=== PATIENT | male | born 1970 | race Caucasian/White ===

== ENCOUNTER → 2016-11-21 | Outpatient (CLI) | payer OTHER ==
--- NOTE | 2016-11-21 09:26 | US ---
EXAMINATION TYPE: US abdomen comp/pelvis limited DATE OF EXAM: 11/21/2016 7:47 AM COMPARISON: 05/18/2016 CLINICAL HISTORY: R10.9 Unspecified abdominal pain. Lower left abdominal pain, history of gallstones and kidney stones EXAM MEASUREMENTS: Liver Length: 17.0 cm Gallbladder Wall: 0.4 cm CBD: 0.4 cm Spleen: 12.8 cm Right Kidney: 10.4 x 4.5 x 5.1 cm Left Kidney: 10.3 x 6.0 x 6.0 cm Pancreas: Tail obscured by bowel gas Liver: heterogeneous Gallbladder: gallstones, GB wall upper limits of normal CBD: visualized portion appears wnl Spleen: wnl Right Kidney: no evidence of hydronephrosis or mass Left Kidney: no evidence of hydronephrosis or mass Upper IVC: wnl Abd Aorta: visualized portions appear wnl Bladder: appears wnl Bilateral Jets Seen no IMPRESSION: 1. Cholelithiasis. 2. Fatty liver.
== END ==
LOC: RADUSWWP 06:54
PROVIDERS: ATTEND Family Medicine
DX: K80.20 Calculus of gallbladder without cholecystitis without obstruction (principal); K76.0 Fatty (change of) liver, not elsewhere classified
CPT/HCPCS: 76700; 76857

== ENCOUNTER → 2017-09-18 | Outpatient (CLI) | payer OTHER ==
--- NOTE | 2017-09-18 20:56 | CONS ---
CONSULTATION This is a consultation note for sleep apnea This is a 47-year-old male patient, a primary of Dr. Livingston who is coming in for sleep apnea evaluation. The patient is feeling sleepy all the time. He is tired a lot and he is snoring very loud at nighttime. He has gained around 10-20 pounds over the past few years and he is drinking about 3-4 bottles of beer at night time. The patient also smokes. 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 His current Mascotte Score is at 17. He is under lot of stress due to work and due to the fact that his father has been diagnosed having lung cancer and his had a C-spine injury and she is having difficulty with mobility in gait and she is undergoing prolonged rehabilitation. The patient has no sleep paralysis. No hallucinations or cataplexy. He has been essentially healthy otherwise. He goes to bed around 1:00 a.m. to 2:00 a.m. and wakes up 7:00 a.m.-10:00 a.m. in the morning. He averages around 5-8 hours of sleep; however, despite that he is feeling still drowsy and sleepy during the day. He occasionally grinds his teeth. Occasionally has heartburn at nighttime. PAST MEDICAL HISTORY: Hyperuricemia, hyperlipidemia and hypertension. PAST SURGICAL HISTORY: None. ALLERGIES: Not known. OUTPATIENT MEDICATIONS: Area combination of: 1. Colchicine 0.6 mg 3 times a day. 2. Clonazepam 0.5 mg at bedtime. 3. Crestor 40 mg p.o. daily. 4. Zetia 10 mg p.o. daily. 5. Pepcid 40 mg p.o. daily. 6. Fenofibrate 54 mg p.o. daily. 7. Flonase nasal spray. 8. Indomethacin 25 mg 3 times a day. 9. Losartan 100 mg p.o. daily. 10.Omeprazole 40 mg p.o. daily. 11.Venlafaxine 75 mg ER 1 tablet a day. REVIEW OF SYSTEMS: A 12-point review of system was done and the positive findings are all mentioned above in history of present illness. Of significance, is negative for anxiety. Maybe a component of depression, as the patient is on venlafaxine. No significant restlessness in lower extremities. No anxiety or panic attacks. No palpitation. Occasional nighttime heartburn. No sleep paralysis. No hallucinations. No cataplexy. No altered mentation. No morning headaches. No cough or sputum production. No angina. No dysuria. No nocturia unless he drinks excessively at nighttime alcohol. BP is 130/74, pulse is 94, respirations 16, temperature 98.4, saturation 97% on room air. Weight is 242. Height is 5 feet 8 inches. Neck size 17-3/4 inches. GENERAL APPEARANCE: Calm, comfortable. Head is atraumatic, normocephalic. Neck is short supple. There is crowding of posterior pharynx. Mallampati class IV. No goiter or neck masses. LUNGS: Diminished breath sounds. Otherwise clear. HEART: Sounds regular rhythm. Normal S1, S2. No S3, S4. No murmurs. ABDOMEN: Soft, nontender. No organomegaly. EXTREMITIES: No edema. No cyanosis or clubbing. NEUROLOGIC: The patient is alert and oriented x3. There is no focal neurological deficits. PSYCHIATRIC: Positive for depression. Currently not active. No anxiety or panic. IMPRESSION: 1. Chronic hypersomnia with an Mascotte score of 17, rule out underlying obstructive sleep apnea. 2. Obesity with a BMI of 36. 3. Loud snoring. 4. Hyperlipidemia. 5. Hyperuricemia. 6. Gout. 7. Depression. PLAN: 1. Encourage weight loss. 2. Cut down on the alcohol drinking, especially at nighttime. 3. Implement good sleep hygiene measures. 4. Proceed with a screening polysomnogram looking for any significant obstructive sleep apnea and will treat accordingly. MMODL / IJN: [id number] /
== END | disposition home or self-care (01) ==
LOC: SLEEP 16:07
PROVIDERS: ATTEND Internal Medicine Critical Care Medicine
DX: G47.19 Other hypersomnia (principal); R06.83 Snoring; E78.5 Hyperlipidemia, unspecified; I10 Essential (primary) hypertension; F10.20 Alcohol dependence, uncomplicated; F17.200 Nicotine dependence, unspecified, uncomplicated; E66.9 Obesity, unspecified; M10.9 Gout, unspecified; F32.9 Major depressive disorder, single episode, unspecified; Z79.899 Other long term (current) drug therapy; Z68.36 Body mass index [BMI] 36.0-36.9, adult
CPT/HCPCS: 99211

== ENCOUNTER → 2018-03-12 | Outpatient (CLI) | payer OTHER ==
--- NOTE | 2018-03-12 16:10 | PN ---
PROGRESS NOTE This is a 47-year-old male patient coming in for a compliancy check regarding obstructive sleep apnea treatment. The patient was diagnosed having severe KINJAL with an AHI of 36.5, worse during REM. Based on that, the patient was given a CPAP machine. It was noted that the patient's CPAP compliance has not been great and the patient was referred to me as soon as possible for further adjustments. On today's evaluation, patient reports that he was benefitting from CPAP treatment which was set at a pressure of 12 cm of water. Never the less, he had a sinus infection and he is currently on antibiotics and at the same he has been traveling and he failed to take his BiPAP machine with him. For that reason, his compliance data looks worse and the patient is coming in for further advice. I interviewed this patient, he is benefiting from the treatment. He seems to be more committed to treatment. I checked his compliancy data and he is achieving more than 4 hours of CPAP is only 13 out of the past 30 days. His average CPAP use while being used is at 5.3 hours and his leak factor at 24 L/minute. His AHI is down to 1.9 while on treatment. He has no other specific complaints. Sinus infection seems to be resolving for now. His Cromwell score is at 12. REVIEW OF SYSTEMS: 12-point review of systems done: Positive findings are mentioned above history of present illness. PHYSICAL EXAMINATION: VITAL SIGNS: His current vitals BP is 122/66, pulse 94, respirations 16, temperature 98.9, and weight is 242, saturation 98% on room air. GENERAL APPEARANCE: Calm, comfortable. Head is atraumatic, normocephalic. NECK: Supple. Crowding of posterior pharynx with no goiter or neck mass. LUNGS: Clear to auscultation. HEART: Sounds regular rhythm. Normal S1, S2. No S3. No murmurs. ABDOMEN: Soft, nontender. No organomegaly. EXTREMITIES: No edema. No cyanosis or clubbing. IMPRESSION: 1. Severe obstructive sleep apnea with an AHI of 36.5. Suboptimal compliance data despite clinical improvement. 2. Acute sinus infections currently on amoxicillin. 3. Hypersomnia improving Cromwell score is down to 12. 4. Obesity BMI 37. 5. Hyperlipidemia. 6. Depression. 7. Gout. PLAN: 1. I will lower the CPAP pressure down to 10 cm of water. 2. Continue using AirFit N20 nose mask. 3. Demand improved compliance especially after treatment of the sinus infection. 4. We will do a short-term followup with this patient in the office in 6 weeks time. I think he will achieve adequate compliancy and this will be confirmed in next 6-8 weeks. He is benefitting from treatment and he seems to be committed and he was asked to take CPAP machine with him whenever he travels out of town. This by itself should improve his compliance data. We will continue to follow. MMODL / IJN: [id number] /
== END | disposition home or self-care (01) ==
LOC: SLEEP 13:00
PROVIDERS: ATTEND Internal Medicine Critical Care Medicine
DX: G47.33 Obstructive sleep apnea (adult) (pediatric) (principal); E66.9 Obesity, unspecified; E78.5 Hyperlipidemia, unspecified; F32.9 Major depressive disorder, single episode, unspecified; M10.9 Gout, unspecified; Z99.89 Dependence on other enabling machines and devices; Z68.37 Body mass index [BMI] 37.0-37.9, adult

== ENCOUNTER → 2018-04-23 | Outpatient (CLI) | payer OTHER ==
--- NOTE | 2018-04-23 15:31 | PN ---
PROGRESS NOTE Khoa is 48 who is coming in for a compliancy check regarding her obstructive sleep apnea treatment. The patient was diagnosed having severe KINJAL with an AHI of 36.5, and currently is on CPAP. During his last visit, his compliance was suboptimal. A lower CPAP pressure down to 10 cm of water. He is using AirFit and N20 nose mask. On today's evaluation, his compliance is improved averaging around 6.6 hours of CPAP use per night and his CPAP use for more than 4 hours . Leak factor is 18 L/minutes. His AHI is down to 3.0. He is benefitting from the treatment. His sleep quality is improved and he is waking up much more alert and refreshed during the day. Unfortunately his stepfather is dying from complications of small cell lung cancer and this has affected his sleep quality in general. Sinus infection was treated with antibiotics and he is fully recovered. REVIEW OF SYSTEMS: 12-point review of system was done. Positive findings are mentioned above history of present illness. No hypersomnia or sleepiness during the day. No restlessness in lower extremities. No sinus pain. No facial pain. No sinus pressure. No headaches. No nausea, vomiting, diarrhea. No . No flatus. PHYSICAL EXAMINATION: BP is 131/75, pulse 77, respirations 16, temperature 98.5 saturation 96% on room air. GENERAL APPEARANCE: Calm, comfortable. Head is atraumatic, normocephalic. NECK: Supple. There is no JVD. No goiter or neck masses. Mallampati class IV. LUNGS: Clear to auscultation. HEART: Sounds regular rhythm. Normal S1, S2. No S3, S4. No murmurs. ABDOMEN: Soft, nontender. No organomegaly. EXTREMITIES: No edema. No cyanosis or clubbing. IMPRESSION: 1. Severe obstructive sleep apnea AHI of 36.5. The patient has been successfully treated with a CPAP pressure of 10 cm of water. The pressure was dropped from 12 to 10. He is demonstrating improved compliancy. 2. Hypersomnia, recovered. 3. Obesity. 4. Hyperlipidemia. 5. Depression. 6. Gout. PLAN: 1. Continue same level of pressure at 10 cm of water. 2. Continue same interface, mask interface which is an N20 nose mask. 3. Encourage weight loss. See me back in a year's time in follow up, earlier if needed. MMODL / IJN: [id number] /
== END | disposition home or self-care (01) ==
LOC: SLEEP 13:06
PROVIDERS: ATTEND Internal Medicine Critical Care Medicine
DX: G47.33 Obstructive sleep apnea (adult) (pediatric) (principal); E66.9 Obesity, unspecified; E78.5 Hyperlipidemia, unspecified; F32.9 Major depressive disorder, single episode, unspecified; M10.9 Gout, unspecified; Z99.89 Dependence on other enabling machines and devices

== ENCOUNTER → 2018-07-04 | Outpatient (CLI) | payer OTHER ==
--- NOTE | 2018-07-04 16:20 | CT ---
EXAMINATION TYPE: CT sinus wo con DATE OF EXAM: 07/04/2018 COMPARISON: NONE HISTORY: Right sided headaches x [address] DLP: 649.5 mGycm. Automated Exposure Control for Dose Reduction was Utilized. TECHNIQUE: CT scan of the sinuses is performed without contrast, axial images are obtained, coronal r eformatted images are also reviewed. FINDINGS: There is mild mucosal thickening in the left maxillary sinus and minimal mucosal thickening of the right maxillary sinus. Polypoid because retention cyst is seen anterior medially of the left maxillary sinus measuring 8 mm. There is mild leftward mid septal deviation of the nasal septum. Scan t mucosal thickening is appreciated within the ethmoid air cells. Mild mucosal thickening of the fron elijah sinuses is seen. No mucosal thickening within the sphenoid sinus. There is minimal opacification of the most inferior mastoid air cells bilaterally. No middle ear cavity fluid is seen. Exam is not optimized for evaluation of the intracranial structures. There is narrowing without occlu mikey of the left ostiomeatal complex from mucosal thickening. Minimal left inferior nasal turbinate m ucosal hypertrophy is seen. Small right middle nasal turbinate lalitha bullosa. No Lesia cells. Orbit s are grossly unremarkable. IMPRESSION: 1. Overall moderate paranasal sinus disease with narrowing of the left ostiomeatal complex due to muc osal thickening. 2. Nonobstructive right middle nasal turbinate lalitha bullosa. 3. Left inferior nasal turbinate mild mucosal hypertrophy. 4. 8 mm left maxillary mucosal retention cyst.
== END | disposition home or self-care (01) ==
LOC: RADCTMAIN 15:34
PROVIDERS: ATTEND Family Medicine
DX: J34.89 Other specified disorders of nose and nasal sinuses (principal); J34.3 Hypertrophy of nasal turbinates; J34.1 Cyst and mucocele of nose and nasal sinus
CPT/HCPCS: 70486

== ENCOUNTER → 2021-06-21 | Outpatient (CLI) | payer OTHER ==
--- NOTE | 2021-06-21 16:47 | PN ---
PROGRESS NOTE Khoa is 51, coming in for a followup. His last evaluation was on 04/23/2019. He is known to have obstructive sleep apnea with an AHI of 36.5, and the patient remains on CPAP with a pressure of 10 cm of water. Starting pressures at 4 cm of water with a 30 minutes ramp time. Over the past one year, the patient has utilized his machine 205 out of 365 days. He has been averaging around 6.3 hours of CPAP use per night. His leak is around 11 L/minute and his AHI while on treatment is down to 3.2. The patient is in need for new supplies. He is using the AirFit N20 medium-size nasal mask. He ran out of supplies and that is why his compliancy numbers went down. On today's evaluation I offered him a sample as soon as possible to continue treatment and I also refilled his supplies. Otherwise, the patient is doing well. No specific complaints for now. No cardiovascular complications. He is up by around 9 pounds since his last evaluation. REVIEW OF SYSTEMS: Fourteen-point review of system was done. Positive findings are mentioned above in history of present illness. BP is 145/85, pulse 87, respirations 16, temp 97.5, BMI 37.6. Sod score is 17. Neck size 19 inches weight is 153. Saturation 98% on room air. General appearance: Calm, comfortable. Head atraumatic, normocephalic. NECK: Supple. No JVD. No goiter or neck masses. Mallampati class 4. LUNGS: Clear to auscultation. HEART: Heart sounds are regular rate and rhythm. Normal S1, S2. No S3, no murmurs. ABDOMEN: Soft nontender. No organomegaly. EXTREMITIES: No edema. No cyanosis or clubbing. NEUROLOGIC: Awake and alert. There is no focal neurological deficits. IMPRESSION: 1. Obstructive sleep apnea, AHI of 36.5, currently on CPAP pressure of 10. 2. Obesity with interval 9 pounds weight gain. BMI 37.6, weight is up to 253. 3. Hypersomnia, probably related to suboptimal use of CPAP therapy due to lack of the mask interface. 4. Hyperlipidemia. 5. Depression. 6. Gout. PLAN: 1. Offer the patient and N20 AirFit large size nasal mask. 2. Keep CPAP pressure at the same level of 10 cm of water. 3. Refill all of his supplies including filters and tubings and chamber. 4. Restart CPAP therapy and demand more compliance. The patient will see me back in a year's time in followup. MMJEANINEL / IJN: [id number] /
== END ==
LOC: SLEEP 14:01
PROVIDERS: ATTEND Internal Medicine Critical Care Medicine
DX: G47.33 Obstructive sleep apnea (adult) (pediatric) (principal); E66.9 Obesity, unspecified; M10.9 Gout, unspecified; E78.5 Hyperlipidemia, unspecified; F32.A Depression, unspecified; Z99.89 Dependence on other enabling machines and devices; Z68.37 Body mass index [BMI] 37.0-37.9, adult

== ENCOUNTER 2021-08-26 17:31 | Emergency (ER) | payer OTHER ==
[2021-08-26 17:43] VITALS: PULSE 92
--- NOTE | 2021-08-26 18:01 | ED ---
Fall HPI - General Chief Complaint: Fall Stated Complaint: Fall, head injury Time Seen by Provider: 08/26/21 17:46 Source: patient Mode of arrival: ambulatory - History of Present Illness Initial Comments: This 51-year-old male presents to the emergency department after slipping on ice while getting out of his truck, striking the back of his head. Patient states he immediately got a headache, dizziness, and some blurred vision that lasted a few minutes but resolved on its own. Patient states he took 2 Aleve. She states he called his primary care provider who told him to come here to get a CT scan of his head. He states his headache is currently 2/10 pain. Patient denies any loss of consciousness. This fall was unwitnessed. Patient denies hitting or injuring any other body parts. He states he has no pain anywhere else other than his 2/10 headache. Patient denies any chest pain, shortness of breath, blurred or double vision, dizziness, lightheadedness, abdominal pain, nausea, weakness, back or neck pain, vomiting. - Related Data Home Medications Medication Instructions Recorded Confirmed Aspirin EC [Ecotrin Low Dose] 81 mg PO DAILY 08/26/21 08/26/21 Cholecalciferol [Vitamin D3 (125 125 mcg PO DAILY 08/26/21 08/26/21 Mcg = 5000 Iu)] Ezetimibe [Zetia] 10 mg PO DAILY 08/26/21 08/26/21 Fenofibrate Nanocrystallized 145 mg PO HS 08/26/21 08/26/21 [Tricor] Fish Oil/Dha/Epa [Fish Oil 1,200 1 cap PO BID 08/26/21 08/26/21 mg Fish Oil] L.acidoph,Paracasei, B.lactis 1 cap PO DAILY 08/26/21 08/26/21 [Probiotic] Losartan Potassium 100 mg PO HS 08/26/21 08/26/21 Omeprazole 40 mg PO DAILY 08/26/21 08/26/21 Rosuvastatin [Crestor] 10 mg PO HS 08/26/21 08/26/21 Venlafaxine HCl ER [Effexor Xr] 75 mg PO DAILY 08/26/21 08/26/21 Zinc Gluconate [Zinc] 50 mg PO DAILY 08/26/21 08/26/21 Allergies Allergy/AdvReac Type Severity Reaction Status Date / Time No Known Allergies Allergy Verified 08/26/21 18:53 Review of Systems ROS Statement: Those systems with pertinent positive or pertinent negative responses have been documented in the HPI. ROS Other: All systems not noted in ROS Statement are negative. Past Medical History Past Medical History: Hypertension History of Any Multi-Drug Resistant Organisms: None Reported Past Surgical History: No Surgical Hx Reported Past Psychological History: Anxiety Smoking Status: Current every day smoker Past Alcohol Use History: Daily Past Drug Use History: None Reported General Exam Limitations: no limitations General appearance: alert, in no apparent distress Head exam: Present: atraumatic, normocephalic, other (Slight pain to palpation on left side and posterior crown of head. No edema, contusion, laceration, abrasion noted) Eye exam: Present: PERRL, EOMI ENT exam: Present: mucous membranes moist Neck exam: Present: normal inspection, full ROM. Absent: tenderness, meningismus, lymphadenopathy Respiratory exam: Present: normal lung sounds bilaterally. Absent: respiratory distress, wheezes, rales, rhonchi, stridor Cardiovascular Exam: Present: regular rate, normal rhythm, normal heart sounds. Absent: systolic murmur, diastolic murmur, rubs, gallop, clicks GI/Abdominal exam: Present: soft, normal bowel sounds. Absent: distended, tenderness, guarding, rebound, rigid Extremities exam: Present: normal inspection, full ROM, normal capillary refill. Absent: tenderness, pedal edema, joint swelling, calf tenderness Back exam: Present: full ROM Neurological exam: Present: alert, oriented X3, CN II-XII intact, normal gait, other (Patient able to perform [id number], rapid alternating movements, 6 cardinal signs of days intact.) Psychiatric exam: Present: normal affect, normal mood Skin exam: Present: warm, dry, intact, normal color. Absent: rash Course Vital Signs 08/26/21 17:38 Temperature 98.9 F Pulse Rate 92 Respiratory 18 Rate Blood Pressure 128/85 O2 Sat by Pulse 99 Oximetry Medical Decision Making - Medical Decision Making This 51-year-old male past medical history of alcoholism presents to the emergency department after slipping and falling on ice, hitting his head on the step of his truck. Patient currently has a headache with pain 1/10. Patient denies any changes in vision, weakness, dizziness. Head/cervical spine CT: No acute intracranial process. No evidence of cervical spine fracture. No evidence of midline shift, no acute intraparenchymal hemorrhage or mass effect. Patient sent home to follow up with primary care provider next 24-48 hours. Strict return precautions were discussed. Patient verbally agreed to plan. Patient sent home in stable condition. Case was discussed by attending, . Disposition Clinical Impression: Fall Disposition: HOME SELF-CARE Condition: Stable Instructions (If sedation given, give patient instructions): Fall Prevention (ED) Additional Instructions: Please return to the emergency department with any concerning, new, worsening symptoms. Please up with primary care provider next 24-48 hours. Is patient prescribed a controlled substance at d/c from ED?: No Referrals: Matt Livingston MD [Primary Care Provider] - 1-2 days Time of Disposition: 19:02
--- NOTE | 2021-08-26 18:40 | CT ---
EXAMINATION TYPE: CT brain cspine wo con CT DLP: 1599.4 mGycm, Automated exposure control for dose reduction was used. DATE OF EXAM: 08/26/2021 6:32 PM COMPARISON: None.. CLINICAL INDICATION:Male, 51 years old with history of Fall with posterior head injury, no LOC. TECHNIQUE: Brain: Multiple axial CT images of the brain were obtained without IV contrast. Cspine: Axial CT images from the skull base to the inferior aspect of T2 we obtained without intraven ous contrast. Coronal and sagittal reformatted images were also reviewed. FINDINGS: Brain: Extra-axial spaces: No abnormal extra-axial fluid collections. Ventricular system: Within normal limits Cerebral parenchyma: No acute intraparenchymal hemorrhage or mass effect. The armando-white junction is well differentiated. Cerebellum: Unremarkable. Mass effect: No evidence of midline shift. Intracranial vasculature: unremarkable Soft tissues: Normal. Calvarium/osseous structures: No depressed skull fracture. Paranasal sinuses and mastoid air cells: Clear. Visualized orbits: Orbital contents are intact. Cervical spine: Fracture: None. Osseous structures: Unremarkable Vertebral alignment: Within normal limits. Spinal canal/Neural Foramina: No evidence of significant spinal canal narrowing. No evidence of signi ficant neural foramina narrowing. Neck soft tissues: Prevertebral soft tissues are within normal limits. Other: The airway is patent. The lung apices are clear. IMPRESSION: 1. No acute intracranial process. 2. No evidence of cervical spine fracture.
[2021-08-26 20:02] VITALS: BP 126/78; RESP 20; TEMP 98.2
== END 2021-08-26 19:59 | disposition home or self-care (01) ==
LOC: EC 17:31
DX: R51.9 Headache, unspecified (principal); I10 Essential (primary) hypertension; F41.9 Anxiety disorder, unspecified; F17.200 Nicotine dependence, unspecified, uncomplicated; Z79.82 Long term (current) use of aspirin; W22.8XXA Striking against or struck by other objects, initial encounter
CPT/HCPCS: 70450; 72125; 99284

== ENCOUNTER → 2021-10-17 | Outpatient (CLI) | payer OTHER ==
--- NOTE | 2021-10-17 08:39 | CT ---
EXAMINATION TYPE: CT sinus wo con DATE OF EXAM: 10/17/2021 COMPARISON: CT dated 07/04/2018 HISTORY: Sinusitis CT DLP: 237 mGycm. Automated Exposure Control for Dose Reduction was Utilized. TECHNIQUE: CT scan of the sinuses is performed without contrast, axial images are obtained, coronal r eformatted images are also reviewed. FINDINGS: Deviated bony nasal septum convex to the left side posteriorly and slightly to the right side anterio rly with tiny bony spur. Right middle lalitha bullosa with hypoplastic left middle turbinate. Minimal mucosal thickening of the nasal fossa. Circumferential mucosal thickening of the maxillary sinuses with obstructed right infundibulum by muc osal thickening. Patent left infundibulum with mucosal thickening. Obliterated right ostiomeatal comp susan. Patent left ostiomeatal complex. Unremarkable frontal sinus, sphenoid sinus and ethmoid air cells. Mild mucosal thickening of the sphe noethmoidal recesses yet still patent. Clear visualized mastoid air cells. Grossly unremarkable orbit s. Prominent nasopharyngeal soft tissue. IMPRESSION: Bilateral chronic maxillary sinusitis as described above.
== END | disposition home or self-care (01) ==
LOC: RADCTMAIN 06:47
PROVIDERS: ATTEND Family Medicine
DX: J32.0 Chronic maxillary sinusitis (principal)
CPT/HCPCS: 70486

== ENCOUNTER → 2021-11-15 | Outpatient (CLI) | payer OTHER ==
[2021-11-15 11:53] LABS: Ionized Calcium 5.6 mg/dL (4.5-5.3)
[2021-11-15 19:19] LABS: Basophils # (A) 0.06 X 10*3/uL (0.00-0.10); Basophils % (A) 0.8 %; Eosinophils # (A) 0.13 X 10*3/uL (0.04-0.35); Eosinophils % (A) 1.8 %; HCT 46.9 % (39.6-50.0); HGB 15.7 g/dL (13.0-17.0); Immature Grans, Automated 0.4 %; Lymphocytes # (A) 2.62 X 10*3/uL (0.90-5.00); Lymphocytes % (A) 35.7 %; MCH 30.8 pg (27.0-32.0); MCHC 33.5 g/dL (32.0-37.0); Mean Platelet Volume 10.9 fL (9.5-12.2); Monocytes # (A) 0.62 X 10*3/uL (0.20-1.00); Monocytes % (A) 8.4 %; NRBC Per 100 WBC 0 /100 WBCS (0.0-0.0); Neutrophils # (A) 3.88 X 10*3/uL (1.80-7.70); Neutrophils % (A) 52.9 %; Platelet Count 281 X 10*3/uL (140-440); RDW 13.2 % (11.5-14.5); WBC 7.34 X 10*3/uL (4.50-10.00)
[2021-11-15 20:29] LABS: Calcium 10.6 mg/dL (8.7-10.3); Chol/HDL Ratio 6.01 Ratio; Creatine Kinase 186 U/L (35-257); LDL Cholesterol,Calculated 111.9 mg/dL (0.0-131.0)
== END | disposition home or self-care (01) ==
LOC: LABWHC1 09:59
PROVIDERS: ATTEND Family Medicine
DX: E83.52 Hypercalcemia (principal); E78.2 Mixed hyperlipidemia; D72.829 Elevated white blood cell count, unspecified
CPT/HCPCS: 36415; 80061; 82306; 82310; 82330; 82550; 83970; 85025; 86141

== ENCOUNTER → 2024-08-29 | Outpatient (CLI) | payer OTHER ==
--- NOTE | 2024-08-29 15:58 | US ---
EXAMINATION TYPE: US carotid duplex BILAT DATE OF EXAM: 08/29/2024 COMPARISON: NONE CLINICAL INDICATION: Male, 54 years old with history of R09.89 OTH SYMPTOMS AND SIGNS INVOLVING THE C IRC A; no h/o stroke, no symptoms, smoker Additional History: .... TECHNIQUE: Grayscale, color Doppler and spectral Doppler evaluation of the bilateral carotid systems and vertebral arteries. Indirect Doppler criteria was utilized. FINDINGS: EXAM MEASUREMENTS: RIGHT: Peak Systolic Velocity (PSV) cm/sec ----- Right CCA: 103.0 ----- Right ICA: 90.3 ----- Right ECA: 204.0 ICA/CCA ratio: 0.9 RIGHT: End Diastole cm/sec ----- Right CCA: 29.2 ----- Right ICA: 24.0 ----- Right ECA: 40.5 LEFT: Peak Systolic Velocity (PSV) cm/sec ----- Left CCA: 103.0 ----- Left ICA: 94.8 ----- Left ECA: 131.0 ICA/CCA ratio: 0.9 LEFT: End Diastole cm/sec ----- Left CCA: 26.0 ----- Left ICA: 27.3 ----- Left ECA: 24.9 VERTEBRALS (direction of flow): Right Vertebral: Antegrade Left Vertebral: Antegrade Rhythm: Normal ORGANIZATIONAL DEVELOPMENT DIRECTOR NOTES: Mild homogeneous plaque with no stenosis Color Doppler imaging shows patency with blood flow throughout the carotid artery. Spectral waveforms are within normal limits. IMPRESSION: Right: No hemodynamically significant stenosis. Left: No hemodynamically significant stenosis. Criteria for Assigning % of Stenosis / Diameter reduction (Estimation based on the indirect measurements of the internal carotid artery velocities (ICA PSV). 1. Normal (no stenosis)=ICA PSV < 125 cm/s: ratio < 2.0: ICA EDV<40 cm/s. 2. Less than 50% stenosis=ICA PSV < 125 cm/s: ratio < 2.0: ICA EDV<40 cm/s. 3. 50 to 69% stenosis=ICA PSV of 125 to 230 cm/s: ration 2.0 ? 4.0: ICA EDV 40-100 cm/s. 4. Greater than 70% stenosis to near occlusion= ICA PSV > 230 cm/s: ratio > 4.0: ICA EDV > 100 cm/s. 5. Near occlusion= ICA PSV velocities may be low or undetectable: variable ratio and ICA EDV. 6. Total occlusion=unable to detect flow. [facility], , 08/29/2024 3:56 PM
== END | disposition home or self-care (01) ==
LOC: RADUSWWP 15:22
PROVIDERS: ATTEND Family Medicine
DX: R09.89 Other specified symptoms and signs involving the circulatory and respiratory systems (principal)
CPT/HCPCS: 93880

== ENCOUNTER 2024-11-18 06:10 | Day surgery (SDC) | payer OTHER ==
[2024-10-01 12:57] VITALS: BMI 36.1
[~2024-11-18 06:10] MED LIST: LIDOCAINE 1% (10MG/ML) FOR IV START INTRADERMA PRN
[2024-11-18] MEDS ORDERED: ONDANSETRON 4 MG/2 ML VIAL IVP PRN (07:00)
[2024-11-18 07:05] VITALS: RESP 16; TEMP 97.1
[2024-11-18] MEDS: IV FLUID CONTINUATION 1,000 ML IV ONE ×2 (07:05→07:39)
[2024-11-18] MEDS: LACTATED RINGERS 1,000 ML IV SCH (07:05)
[2024-11-18] MEDS ORDERED: PROPOFOL 10 MG/ML 20 ML VIAL IV ONE (07:12)
[2024-11-18] MEDS ORDERED: LIDOCAINE 1% INJ 10MG/ML (20 ML MDV) ONE (07:12)
--- NOTE | 2024-11-18 07:37 | P.PCN ---
Date of Procedure: 11/18/24 Procedure(s) Performed: Brief history: Patient is a pleasant 54-year-old white male scheduled for an elective upper endoscopy as well as colonoscopy as a part of evaluation of GERD and screening for colon cancer Procedure performed: Esophagogastroduodenoscopy with biopsy Colonoscopy with biopsy Preoperative diagnosis: GERD Screening for colon cancer Anesthesia: MAC Procedure: After informed consent was obtained from the patient was brought into the endoscopy unit and IV sedation was administered by anesthesia under continuous monitoring. Initially upper endoscopy was done. The Olympus GF 160 video endoscope was inserted inserted into the mouth and esophagus intubated without any difficulty and was gradually advanced into the stomach and duodenum and carefully examined. The bulb and second part of the duodenum appeared normal. The scope was then withdrawn into the stomach adequately insufflated with air and upon careful examination the antrum and body, cardia and fundus appeared normal. The scope was then withdrawn into the esophagus. The GE junction was located at 40 cm to the incisors. It appeared regular with no erythema erosions or ulcerations. Rest of the esophagus appeared normal. Patient tolerated the procedure well. At this time the patient continued to remain sedation. Initial digital rectal examination was normal. Olympus CF 160 video colonoscope was then inserted into the rectum and gradually advanced to the cecum without any difficulty. Careful examination was performed as the scope was gradually being withdrawn. The prep was excellent. The cecum, had a 3 mm sessile polyp removed by cold biopsy. Rest of the ascending colon, transverse colon, descending colon, appeared normal. The sigmoid colon there was a 5 mm polyp removed by cold biopsy. Rest of the sigmoid colon and rectum appeared normal. Retroflexion was performed in the rectum and no lesions were noted. Patient tolerated the procedure well. Impression: 1. Upper endoscopy revealed normal-appearing esophagus with no evidence of esophagitis or Rain's esophagus 2. Colonoscopy revealed 3 mm cecal polyp and a 5 mm sigmoid colon polyp status post cold biopsy Recommendations: Findings of this examination were discussed with the patient as well as his family. He was advised to follow the biopsy results. If the biopsy was adenoma he can have repeat colonoscopy in 5 years.
[2024-11-18 07:55] VITALS: BP 116/78; PULSE 76
== END 2024-11-18 08:23 | disposition home or self-care (01) ==
LOC: ORWHC2ENDO 06:10
PROVIDERS: ATTEND Internal Medicine Gastroenterology
DX: Z12.11 Encounter for screening for malignant neoplasm of colon (principal); K63.5 Polyp of colon; I10 Essential (primary) hypertension; E78.5 Hyperlipidemia, unspecified; G47.33 Obstructive sleep apnea (adult) (pediatric); K21.9 Gastro-esophageal reflux disease without esophagitis; F41.9 Anxiety disorder, unspecified; F17.200 Nicotine dependence, unspecified, uncomplicated; Z79.82 Long term (current) use of aspirin; Z79.899 Other long term (current) drug therapy
CPT/HCPCS: 45380; 43235; 88305; J2003; J2704